=== PATIENT | male | born 1940 | race Caucasian/White ===

== ENCOUNTER → 2018-03-09 | Outpatient (CLI) | payer MEDICARE, OTHER ==
[~2018-03-09] MED LIST: PROHANCE 279.3MG/ML 15ML VIAL (A9576) As Ordered; PROHANCE 279.3MG/ML 5ML VIAL (A9576) As Ordered
== END ==
LOC: M RAD 08:51
DX: N40.0 Benign prostatic hyperplasia without lower urinary tract symptoms (principal); N42.89 Other specified disorders of prostate
CPT/HCPCS: A9576

== ENCOUNTER 2019-03-18 10:24 | Day surgery (SDC) | payer MEDICARE, OTHER ==
[~2019-03-18] VITALS: Ht 182.9 cm; Wt 86.6 kg
[~2019-03-18 10:24] MED LIST changes: +AUGM0.0534; +CENT1TAB2 PO; +EQL400CA9 PO; +EZET10TA21 PO; +FINA5TAB2 PO; +KP F1200 PO; +LR 1,000 ML IV ONE; +OCUVTAB4 PO; -PROHANCE 279.3MG/ML 15ML VIAL (A9576) As Ordered; -PROHANCE 279.3MG/ML 5ML VIAL (A9576) As Ordered; +SYST1SOL2 OU; +TAMS1CAP17 PO
[2019-03-18] MEDS ORDERED: BUPIVACAINE HCL 0.25% 30 ML VIAL As Ordered ONE (13:06)
[2019-03-18] MEDS ORDERED: fentaNYL 250 MCG/5 ML INJECTION (J3010) As Ordered ONE (14:09)
[2019-03-18] MEDS ORDERED: PHENYLephrine HCL 500 MCG/5 ML (100MCG/ML) SYRINGE (J2370) As Ordered ONE (14:09)
[2019-03-18] MEDS ORDERED: ROCURONIUM BROMIDE 50 MG/5 ML VIAL As Ordered ONE (14:09)
[2019-03-18] MEDS ORDERED: SUGAMMADEX SODIUM 500 MG/5 ML VIAL (BRIDION) As Ordered ONE (14:09)
[2019-03-18] MEDS ORDERED: PROPOFOL 200 MG/20 ML VIAL As Ordered ONE (14:09)
[2019-03-18] MEDS ORDERED: dexameTHASONE 4 MG/ML 1ML VIAL (J1100) As Ordered ONE (14:09)
[2019-03-18] MEDS ORDERED: MIDAZOLAM INJ 2 MG/2 ML VIAL (J2250) As Ordered ONE (14:09)
[2019-03-18] MEDS ORDERED: ONDANSETRON 4MG/2ML VIAL (J2405) As Ordered ONE (14:09)
[2019-03-18] MEDS ORDERED: ePHEDrine SULFATE 25 MG/5 ML(5MG/ML) SYRINGE As Ordered ONE (14:09)
[2019-03-18] MEDS ORDERED: LIDOCAINE 2% INJ 100 MG/5 ML SDV (FOR ANES.) As Ordered ONE (14:09)
[2019-03-18] MEDS ORDERED: ACETAMINOPHEN 1000MG 100ML IV BTL (OFIRMEV) (J0131 PER 10MG) As Ordered ONE (14:50)
[2019-03-18] MEDS ORDERED: fentaNYL 100 MCG/2 ML INJECTION (J3010) As Ordered ONE (15:43)
[2019-03-18] MEDS ORDERED: NORCO, ANEXSIA 5/325MG TABLET (HYDROcodone/ACETAMINOPHEN) PO PRN (16:30)
[2019-03-18] MEDS ORDERED: LR 1,000 ML IV SCH (16:30)
[2019-03-18] MEDS ORDERED: ONDANSETRON 4MG/2ML VIAL (J2405) IV PRN (16:30)
[2019-03-18] MEDS ORDERED: ACETAMINOPHEN TAB 650MG DOSE (2X325MG) PO PRN (16:30)
[2019-03-18] MEDS: oxyCODONE 5MG TAB PO PRN ×2 (16:33→17:21)
[2019-03-18] MEDS: fentaNYL 100 MCG/2 ML INJECTION (J3010) IV PRN ×2 (16:33→16:50)
[2019-03-18] MEDS ORDERED: HYDR-4571 PO (17:23)
[2019-03-18 18:35] VITALS: BP 164/81
--- NOTE | 2019-03-19 00:10 | RO ---
DATE OF PROCEDURE: 03/18/2019 PREOPERATIVE DIAGNOSIS: Recurrent right inguinal hernia. POSTOPERATIVE DIAGNOSES: 1. Recurrent right inguinal hernia. 2. Peritoneal adhesions secondary to prior surgery. PROCEDURE PERFORMED: Robotic-assisted laparoscopic repair of recurrent right inguinal hernia with lysis of adhesions. SURGEON: Anurag Quiles MD PARTS SALESPERSON: BHAVYA Gibson. Angelina's assistance was necessary for placement of the trocars, manipulation of the robotic instruments with instrument exchanges and passage of needles and mesh, as well as closure of the incisions. ANESTHESIA: General. INDICATIONS FOR THE PROCEDURE: The patient is a 78-year-old man who had undergone repair of inguinal hernia as a child. He has noticed a bulge above his oblique right lower quadrant scar. He is now for repair of a recurrent right inguinal hernia. DESCRIPTION OF PROCEDURE: The patient was brought to the operating room and placed supine on the operating table. He was placed under general endotracheal anesthesia. The patient's abdomen and groins and genitalia were prepped and draped in a sterile fashion. 0.25% Marcaine was infiltrated at the trocar sites as needed. A short incision was made in the left upper quadrant and the Veress needle was inserted. However, on insufflation pressures were high and insufflation was halted. I attempted to pass the needle again in the left upper quadrant with the same results, and there appeared to be some insufflation in the left side of the abdominal wall. Therefore, a new site for insertion was selected along the midline several centimeters above the umbilicus. On this occasion, there was passage of the needle without difficulty and a positive hanging drop test. The abdomen was insufflated with carbon dioxide gas, and an 8 mm port was placed over the 5 mm endoscope and advanced through the abdominal wall without difficulty. Initial examination showed several broad bands of adhesions in the right mid and lower abdomen associated with his prior appendectomy and possibly with his herniorrhaphy as well. A definite hernia was identified in the right lower quadrant. A second 8 mm trocar was placed in the left upper quadrant and a third in the right upper quadrant. The patient was tilted to approximately 15 degree Trendelenburg position. The [employer] patient cart was brought into position, and the endoscope port was docked. Targeting took place and the additional arms were then docked. I then moved to the control console to proceed with the operation. Initially the adhesions in the right lower quadrant were lysed with a combination of sharp and cautery dissection. Some of these had partially obscured the area of the hernia. As this became more apparent, it was clear that there was a thick frond of greater omentum, which was adherent at the level of the opening of the hernia. There were some adhesions, which were lysed freeing the omentum. There did appear to be some scarring in the tissues of the abdominal wall anterior to the recurrent hernia. There was some thickening and some fibrotic change in the area where the right vas deferens was anticipated. A peritoneal flap was then developed. Toward the mid and lateral part of this flap, the peritoneum was in areas scarred to the more fibrous tissues of the abdominal wall. The flap proceeded from medial to lateral, and this was then developed with a combination of sharp and cautery and blunt dissection. Medially, the Juan Jose's ligament was identified. The femoral artery was prominent. There appeared to be a small outpouching medial to the artery, suggestive of the start of a femoral hernia. The inferior epigastric vessels were clearly identified, and there was a moderately large hernia just lateral. The spermatic cord appeared to be quite attenuated. There appeared to be a vein present but no significant artery was identified. The hernia sac was quite adherent to the tissues that made up the spermatic cord, and a small opening was created in the peritoneum as this was dissected free. Once the abdominal wall had been adequately dissected and the peritoneum adequately freed from the spermatic cord structures, a right-sided Bard large 3DMax Light Mesh was selected and was inserted into the abdomen. This was placed over the inner aspect of the inguinal floor. The mesh utilized was reference code [id number] and lot number [id number]. Two sutures were placed using #2-0 Vicryl to tack the mesh to Juan Jose's ligament at the medial most extent of the mesh and then adjacent to the femoral artery. A single third stitch was placed at the superolateral extent of the mesh. The mesh appeared to lie nicely over the inguinal floor covering the hernia defect with a broad overlap on all sides and also covering the area of the incipient femoral hernia. The peritoneal flap was then closed with a running #2-0 V-Loc suture. The small rent in the flap was then closed with a running suture of #2-0 Vicryl. The intra-abdominal pressure had been reduced to 8 mmHg while the mesh was placed. Final inspection revealed no evidence of any bleeding. The robotic instruments were removed, and the robot was undocked and the patient was returned to a flat position. The trocars were removed after venting the abdomen, and the incisions were closed with buried Vicryl sutures and Steri-Strips. Light dressings were applied. The patient tolerated the procedure well without apparent complication. He was awakened in the operating room, extubated and moved to the recovery room in stable condition. PEYTON
== END 2019-03-18 18:35 | disposition home or self-care (01) ==
LOC: M SDC 10:24
PROVIDERS: ATTEND Surgery
DX: K40.91 Unilateral inguinal hernia, without obstruction or gangrene, recurrent (principal); K66.0 Peritoneal adhesions (postprocedural) (postinfection); E78.00 Pure hypercholesterolemia, unspecified; N40.0 Benign prostatic hyperplasia without lower urinary tract symptoms; Z79.899 Other long term (current) drug therapy; Z87.891 Personal history of nicotine dependence
CPT/HCPCS: 49651; C1781; J0131; J1100; J2250; J2370; J2405; J3010

== ENCOUNTER → 2022-11-15 | Outpatient (CLI) | payer MEDICARE, OTHER ==
[~2022-11-15] MED LIST changes: +HYDR-4571 PO; +ISOVUE-300 61% 100ML VIAL As Ordered ONE; +LIDOCAINE 1% MDV 20ML VIAL As Ordered ONE; -LR 1,000 ML IV ONE; +methylPREDNISolone SUSP 40MG/ML 1ML VIAL (DEPO MEDROL) As Ordered ONE
== END ==
LOC: M RAD 14:27
PROVIDERS: ATTEND Physician Assistant Surgical
DX: M16.11 Unilateral primary osteoarthritis, right hip (principal)
CPT/HCPCS: 20610; 77002; J1030; Q9967

== ENCOUNTER → 2023-08-12 | Outpatient (CLI) | payer MEDICARE, OTHER | LOC: M RAD 14:46 | PROVIDERS: ATTEND Physician Assistant Surgical | DX: M16.11 Unilateral primary osteoarthritis, right hip (principal) | CPT/HCPCS: 20610; 77002; J1030; Q9967 ==

== ENCOUNTER → 2024-03-15 | Outpatient (CLI) | payer MEDICARE, OTHER | LOC: M RAD 12:22 | PROVIDERS: ATTEND Physician Assistant Surgical | DX: M16.11 Unilateral primary osteoarthritis, right hip (principal) | CPT/HCPCS: 20610; 77002; J1010; Q9967 ==